=== PATIENT | male | born 1955 | race Caucasian/White ===

== ENCOUNTER 2017-01-28 19:33 | Observation (INO) | payer OTHER ==
[~2017-01-28] VITALS: Ht 172.7 cm; Wt 86.4 kg
[~2017-01-28 19:33] MED LIST: ADVAIR HFA120 INHALA IH; ALTACE10 MG PO; AMLODIPINE BESYL5 MG PO; ASPIR-TRIN325 M1 PO; ASPIRIN EC325 M1 PO; ASPIRIN325 MG PO; ATORVASTATIN CA80 MG PO; AUGMENTIN875 MG PO; Benadryl PO; CHLORDIAZEPOXID25 MG PO; CLOPIDOGREL75 MG PO; CRESTOR20 MG PO; CRESTOR5 MG PO; EFFIENT10 MG PO; EYE DROP15 ML BOTH EYES; Ecotrin PO; Epipen Adult Autoinj IM; FOLIC ACID0.4 MG PO; IBUPROFEN800 MG PO; KLONOPIN0.5 M1 PO; LIPITOR80 MG PO; LOPRESSOR50 MG PO; METOPROLOL SUCC50 MG PO; NAPROXEN500 MG PO; NITROGLYCERIN0.4 MG SL; NITROSTAT,NITR0.4 M1 SL; NITROSTAT0.4 MG SL; NORVASC10 MG PO; NORVASC5 MG PO; PANTOPRAZOLE SO40 MG PO; PLAVIX75 MG PO; PRISTIQ50 MG PO; PROAIR HFA8.5 GM IH; PROTONIX40 MG PO; RAMIPRIL10 MG PO; SPIRIVA1 INHALATI IH; TOPROL XL50 MG PO; ULTRAM50 MG PO; VENTOLIN HFA18 GM IH; VITAMIN B-1100 MG PO; predniSONE PO
[2017-01-28 19:53] LABS: HEMATOCRIT 42.7 % (38.0-50.0); MCH 31.8 PG (29.0-34.0); MCHC 34.4 G/DL (30.0-36.0); MCV 92.4 FL (86-99); MEAN PLAT.VOLUME 9.1 uM^3 (9.0-12.4); PLATELET COUNT 200 K/uL (156-360); RBC DIS.WIDTH-CV 13.2 % (11.8-14.6); RBC DIS.WIDTH-SD 44.5 % (39-53); RED BLOOD COUNT 4.62 M/uL (4.00-5.50); WHITE BLOOD COUNT 9.2 K/uL (4.1-10.2)
[2017-01-28 20:04] LABS: CHLORIDE 104 mEq/L (99-109); POTASSIUM 3.7 mEq/L (3.7-5.4); SODIUM 141 mEq/L (136-147)
[2017-01-28 20:05] LABS: GLUCOSE 122 mg/dL (70-99)
[2017-01-28 20:07] LABS: ANION GAP 11 MEQ/L (2-14)
[2017-01-28 20:09] LABS: GFR ESTIMATE (CALCULATED) > 59 mL/min/
[2017-01-28 20:10] LABS: UREA NITROGEN (BUN) 17 mg/dL (9-23)
[2017-01-28 20:13] LABS: TROP-I INTERPRETATION NEGATIVE; TROPONIN-I < 0.01 ng/mL (0.0-0.30)
[2017-01-28 21:45] LABS: TROP-I INTERPRETATION NEGATIVE; TROPONIN-I < 0.01 ng/mL (0.0-0.30)
[2017-01-28] MEDS ORDERED: EFFIENT10 MG PO (22:02)
[2017-01-28] MEDS ORDERED: LIPITOR80 MG PO (22:02)
[2017-01-28] MEDS ORDERED: NEXIUM 24HR20 MG PO (22:03)
[2017-01-28 22:56] LABS: MAGNESIUM 1.9 mg/dL (1.3-2.7)
[2017-01-28 23:20] VITALS: BP 132/81
[2017-01-29 03:20] LABS: TROP-I INTERPRETATION NEGATIVE; TROPONIN-I < 0.01 ng/mL (0.0-0.30)
[2017-01-29 04:23] VITALS: BP 121/67
[2017-01-29 08:49] LABS: HDL CHOLESTEROL 35 MG/DL (Desirable>=40); LDL CHOLESTEROL 43 mg/dL (Desirable<100); NON-HDL CHOLESTEROL 66 mg/dL (Desirable<160); TOTAL CHOLESTEROL 101 mg/dL (Desirable<200); TRIGLYCERIDES 117 MG/DL (Normal: <150)
[2017-01-29 08:51] LABS: TROP-I INTERPRETATION NEGATIVE; TROPONIN-I < 0.01 ng/mL (0.0-0.30)
[2017-01-29 09:40] VITALS: BP 167/85
[2017-01-29] MEDS ORDERED: NICOTINE PATCH1 EAC2 TD (09:59)
== END 2017-01-29 11:39 | disposition home or self-care (01) ==
LOC: EME 19:33 → 5WEST 22:18 → EDOF 22:18 → ENRESERV 22:19 → 5WEST 23:02
PROVIDERS: Emergency Medicine; Physician Assistant Medical
DX: R07.89 Other chest pain (principal); I25.2 Old myocardial infarction; I25.10 Atherosclerotic heart disease of native coronary artery without angina pectoris; Z95.5 Presence of coronary angioplasty implant and graft; J44.9 Chronic obstructive pulmonary disease, unspecified; F17.210 Nicotine dependence, cigarettes, uncomplicated; F10.10 Alcohol abuse, uncomplicated; E78.5 Hyperlipidemia, unspecified; K21.9 Gastro-esophageal reflux disease without esophagitis; K44.9 Diaphragmatic hernia without obstruction or gangrene; G89.29 Other chronic pain; M54.5 Low back pain; M19.90 Unspecified osteoarthritis, unspecified site; Z87.828 Personal history of other (healed) physical injury and trauma; Z88.2 Allergy status to sulfonamides; Z88.8 Allergy status to other drugs, medicaments and biological substances; Z79.82 Long term (current) use of aspirin; Z79.01 Long term (current) use of anticoagulants; Z82.49 Family history of ischemic heart disease and other diseases of the circulatory system; Z80.1 Family history of malignant neoplasm of trachea, bronchus and lung; Z91.030 Bee allergy status
CPT/HCPCS: 71020; 80048; 80061; 83735; 84484; 85027; 93005; 99202; 99281; 99284; G0378; J1650; J3411; J7030

== ENCOUNTER 2017-07-10 09:16 | Emergency (ER) | payer SELFPAY ==
[~2017-07-10] VITALS: Ht 172.7 cm; Wt 88.7 kg
[~2017-07-10 09:16] MED LIST changes: +NEXIUM 24HR20 MG PO; +NICOTINE PATCH1 EAC2 TD
[2017-07-10] MEDS ORDERED: ULTRACET1 TABLET PO (12:30)
[2017-07-10 12:38] VITALS: BP 137/71
== END 2017-07-10 12:38 | disposition home or self-care (01) ==
LOC: EME 09:16
DX: I83.92 Asymptomatic varicose veins of left lower extremity (principal); I80.02 Phlebitis and thrombophlebitis of superficial vessels of left lower extremity; Z79.02 Long term (current) use of antithrombotics/antiplatelets; F17.200 Nicotine dependence, unspecified, uncomplicated; I10 Essential (primary) hypertension; E78.5 Hyperlipidemia, unspecified; F32.9 Major depressive disorder, single episode, unspecified; J44.9 Chronic obstructive pulmonary disease, unspecified; I25.2 Old myocardial infarction; K21.9 Gastro-esophageal reflux disease without esophagitis; F41.9 Anxiety disorder, unspecified; Z95.5 Presence of coronary angioplasty implant and graft; Z79.82 Long term (current) use of aspirin; Z88.2 Allergy status to sulfonamides
CPT/HCPCS: 93971; 99281; 99283